=== PATIENT | female | born 1990 | race African-American/Black ===

== ENCOUNTER 2016-12-20 23:15 | Emergency (ER) | payer OTHER ==
[2016-12-21 01:17] LABS: Hematocrit 37 % (35-47); Hemoglobin 12.1 g/dl (12.0-16.0); Mean Corpuscular HGB Conc 33 g/dl (31-36); Mean Corpuscular Hemoglobin 23 pg (27-31); Mean Corpuscular Volume 70 fL (80-97); Mean Platelet Volume 8 um3 (7.4-10.4); Red Blood Count 5.28 10^6/ul (4.0-5.4); Red Cell Distribution Width 15 % (10.5-15); White Blood Count 9.1 10^3/ul (3.5-10.8)
[2016-12-21 01:21] LABS: Add Diff/Slide Review? Slide Review Added; Comments Flag Yes
[2016-12-21 01:31] LABS: ALT 8 U/L (7-52); AST 14 U/L (13-39); Alkaline Phosphatase 27 U/L (34-104); Anion Gap 4 mmol/L (2-11); BUN/Creatinine Ratio 10.2 (8-20); Blood Urea Nitrogen 9 mg/dL (6-24); C Reactive Protein < 1.00 mg/L (< 5.00); CO2 Carbon Dioxide 26 mmol/L (22-32); Calcium 9.2 mg/dL (8.6-10.3); Chloride 101 mmol/L (101-111); EGFR African American 101.5 (>60); EGFR Non-African American 78.9 (>60); Globulin 3.4 g/dL (2-4); Glucose 103 mg/dL (70-100); Lipase 10 U/L (11.0-82.0); Potassium 3.3 mmol/L (3.5-5.0); Sodium 131 mmol/L (133-145); Total Protein 7.4 g/dL (6.4-8.9)
[2016-12-21] MEDS ORDERED: Prochlorperazine TAB* 10 MG PO ONE (03:31)
[2016-12-21] MEDS ORDERED: Acetaminophen TAB* 325 MG PO ONE (03:31)
[2016-12-21 03:57] LABS: Urine Bacteria 1+ (Absent); Urine Bilirubin Negative (Negative); Urine Glucose Negative (Negative); Urine Nitrite Negative (Negative)
[2016-12-21 04:44] VITALS: BP 128/86
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
== END 2016-12-21 04:41 | disposition home or self-care (01) ==
LOC: ED 23:15
DX: O26.899 Other specified pregnancy related conditions, unspecified trimester (principal); R11.2 Nausea with vomiting, unspecified; R10.10 Upper abdominal pain, unspecified; Z3A.00 Weeks of gestation of pregnancy not specified
CPT/HCPCS: 36415; 80053; 81003; 81015; 83605; 83690; 84702; 85025; 86140; 87086; 99284; A9270-GY; Q0164

== ENCOUNTER 2018-12-29 23:57 | Emergency (ER) | payer BC, OTHER ==
[2018-12-30 06:27] LABS: Hematocrit 37 % (35-47); Hemoglobin 11.6 g/dL (12.0-16.0); Mean Corpuscular HGB Conc 32 g/dL (31-36); Mean Corpuscular Hemoglobin 22 pg (27-31); Mean Platelet Volume 8.3 fL (7.4-10.4); Platelet Count 299 10^3/uL (150-450); Red Blood Count 5.18 10^6 /uL (3.70-4.87); Red Cell Distribution Width 15 % (10-15); White Blood Count 5.7 10^3/uL (3.5-10.8)
[2018-12-30 06:40] LABS: ALT 18 U/L (7-52); AST 29 U/L (13-39); Albumin/Globulin Ratio 1.3 (1-3); Alkaline Phosphatase 35 U/L (34-104); Anion Gap 6 mmol/L (2-11); BUN/Creatinine Ratio 13.4 (8-20); Blood Urea Nitrogen 13 mg/dL (6-24); CO2 Carbon Dioxide 25 mmol/L (22-32); Calcium 9.3 mg/dL (8.6-10.3); Chloride 105 mmol/L (101-111); EGFR Non-African American 69.4 (>60); Globulin 3.2 g/dL (2-4); Glucose 86 mg/dL (70-100); Potassium 3.9 mmol/L (3.5-5.0); Sodium 136 mmol/L (135-145); Total Protein 7.2 g/dL (6.4-8.9)
[2018-12-30 06:47] LABS: HCG Pregnancy < 0.60 mIU/mL
[2018-12-30 06:48] LABS: ABS Basophils 0.1 10^3/ul (0-0.2); ABS Eosinophils 0.1 10^3/ul (0-0.6); ABS Lymphocytes 2.2 10^3/ul (1.0-4.8); ABS Monocytes 0.6 10^3/ul (0-0.8); ABS Neutrophils 2.8 10^3/ul (1.5-7.7); Eosinophil % 1.1 %; Lymphocyte % 38.8 %; Mean Corpuscular Volume 71 fL (80-97); Nucleated Red Blood Cells % 0.2
[2018-12-30 07:19] LABS: Hepatitis B Surface Antigen Nonreactive (Nonreactive)
[2018-12-30 07:37] LABS: Hepatitis C Antibody Negative (Negative)
[2018-12-30] MEDS ORDERED: Ondansetron ODT TAB* 4 MG PO ONE (08:14)
[2018-12-30] MEDS ORDERED: Ibuprofen TAB* 800 MG PO ONE (08:14)
[2018-12-30] MEDS ORDERED: metroNIDAZOLE TAB* 250 MG PO ONE (08:15)
[2018-12-30] MEDS ORDERED: Azithromycin TAB* 250 MG PO ONE (08:15)
[2018-12-30] MEDS ORDERED: cefTRIAXone VIAL(*) 250 MG VIAL IM ONE (08:15)
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
[2018-12-30] MEDS ORDERED: Lidocaine 1% MPF ** 5 ML VIAL ONE (08:20)
[2018-12-30 08:40] LABS: Urine Appearance Clear; Urine Bilirubin Negative (Negative); Urine Blood Negative (Negative); Urine Color Yellow; Urine Glucose Negative (Negative); Urine Ketones Negative (Negative); Urine Nitrite Negative (Negative); Urine Protein Negative (Negative); Urine Specific Gravity 1.028 (1.010-1.030); Urine Urobilinogen Negative (Negative)
[2018-12-30 08:42] LABS: Urine Benzodiazepine Screen None Detected (None Detect); Urine Opiates Screen None Detected (None Detect)
[2018-12-30 08:44] VITALS: BP 00/0
[2019-01-01 13:32] LABS: Chlamydia trachomatis NAA Negative (Negative); Neisseria gonorrhoeae (GC) NAA Negative (Negative)
== END 2018-12-30 08:44 | disposition home or self-care (01) ==
LOC: ED 23:57
DX: T76.21XA Adult sexual abuse, suspected, initial encounter (principal)
CPT/HCPCS: 36415; 80053; 80307; 81003; 83605; 84702; 85025; 86803; 87340; 87491; 87591; 96372; 99284; A9270-GY; J0696

== ENCOUNTER 2019-05-16 07:45 | Emergency (ER) | payer BC ==
--- NOTE | 2019-05-16 08:11 | ED ---
HPI Chest Pain - HPI Summary HPI Summary: 28 year old F presenting to [facility] alone complains of CP in the medial chest that radiates to her right back since she woke up this morning 05/16/2019. Patient reports a pre-existing cough with no blood. Patient denies pain or swelling in the legs and SOB. She has PMHx of endometriosis which she has received surgery for and is currently on control. 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 She has a FHx of blood clots for which there is a disorder running in her family. No FHx of [place] however. No recent travel. The patient rates the pain 6/10 in severity. Symptoms aggravated by movement. Symptoms alleviated by nothing. Medications reviewed. Allergies noted. Home Medications Medication Instructions Recorded Confirmed Type Control 1 tab PO DAILY 05/16/19 05/16/19 History - History of Current Complaint Chief Complaint: EDBackInjuryPain Time Seen by Provider: 05/16/19 08:03 Hx Obtained From: Patient Hx Last Menstrual Period: 01/11/15 Onset/Duration: Started Hours Ago, Still Present Timing: Lasting Hours Current Severity: Moderate Pain Intensity: 6 Pain Scale Used: 0-10 Numeric Chest Pain Location: Mid Sternal Chest Pain Radiates: Yes Chest Pain Radiates To:: Back - right Aggravating Factor(s): Movement Alleviating Factor(s): Nothing Associated Signs and Symptoms: Positive: Chest Pain - mid sternal and radiates to right back, Cough - pre-existing with no blood. Negative: Shortness of Breath, Calf Pain/Swelling - Allergy/Home Medications Allergies/Adverse Reactions: Allergies Allergy/AdvReac Type Severity Reaction Status Date / Time artifical estrogen Allergy See Comment Uncoded 05/16/19 08:07 Home Medications: Home Medications Norgestimate-Eth Estradiol(NF) [Ortho Tri-Cyclen (NF)] 1 tab PO DAILY 05/16/19 [ History Confirmed 05/16/19] PMH/Surg Hx/FS Hx/Imm Hx Endocrine/Hematology History: Denies: Hx Anticoagulant Therapy Cardiovascular History: Denies: Hx Pacemaker/ICD GI History: Reports: Hx Gastroesophageal Reflux Disease, Other GI Disorders - endometriosis Musculoskeletal History: Denies: Hx Rheumatoid Arthritis, Hx Osteoporosis Sensory History: Denies: Hx Hearing Aid Psychiatric History: Denies: Hx Panic Disorder - Immunization History Date of Tetanus Vaccine: UNK Date of Influenza Vaccine: UNK Infectious Disease History: No Infectious Disease History: Denies: Traveled Outside the [place] in Last 30 Days - Family History Known Family History: Positive: Other - multiple PE (father), breast CA ( grandmother), blood clots Negative: Hypertension, Diabetes - Social History Alcohol Use: Occasionally Substance Use Type: Reports: None Hx Tobacco Use: No Smoking Status (MU): Never Smoked Tobacco Review of Systems Positive: Chest Pain - mid sternal and radiates to right back Positive: Cough - pre-existing with no blood. Negative: Shortness Of Breath Negative: Edema - no pain or swelling in legs All Other Systems Reviewed And Are Negative: Yes Physical Exam - Summary Physical Exam Summary: Constitutional: Well-developed, Well-nourished, Alert. (-) Distressed. Skin: Warm, Dry HENT: Normocephalic; Atraumatic Eyes: Conjunctiva normal Neck: Musculoskeletal ROM normal neck. (-) JVD, (-) Stridor, (-) Tracheal deviation Cardio: Rhythm regular, rate normal, Heart sounds normal; Intact distal pulses; Radial pulses are 2+ and symmetric. (-) Murmur Pulmonary/Chest wall: Effort normal. (-) Respiratory distress, (-) Wheezes, (-) Rales Abd: Soft, (-) tenderness, (-) Distension, (-) Guarding, (-) Rebound Musculoskeletal: (-) Edema. Patient is asymptomatic when laying down but has difficulty sitting up due to pain in the right scapula. Lymph: (-) Cervical adenopathy Neuro: Alert, Oriented x3 Psych: Mood and affect Normal Triage Information Reviewed: Yes Vital Signs On Initial Exam: Initial Vitals Temp Pulse Resp BP Pulse Ox 99.1 F 81 18 116/80 99 05/16/19 07:47 05/16/19 07:47 05/16/19 07:47 05/16/19 07:47 05/16/19 07:47 Vital Signs Reviewed: Yes Procedures - Sedation Patient Received Moderate/Deep Sedation with Procedure: No Diagnostics - Vital Signs Vital Signs Temp Pulse Resp BP Pulse Ox 05/16/19 07:47 99.1 F 81 18 116/80 99 - Laboratory Result Diagrams: 05/16/19 08:21 05/16/19 08:21 Lab Statement: Any lab studies that have been ordered have been reviewed, and results considered in the medical decision making process. - CT Chest/Thorax CTA CT Interpretation Completed By: Radiologist Summary of CT Findings: IMPRESSION: NO PULMONARY ARTERIAL FILLING DEFECT TO SUGGEST PULMONARY EMBOLISM. has reviewed this report. - EKG 0756 Cardiac Rate: NL EKG Rhythm: Sinus Rhythm Summary of EKG Findings: An EKG at 0756 reveals sinus rhythm at a rate of 72 with no STEMI. has reviewed and interpreted this EKG. Chest Pain Course/Dx - Course Course Of Treatment: Patient is here with pain in her back that relates to her right chest. Patient is concerned that she is a family history of a clotting disorder and multiple family members who have had blood clots. Patient is overall low risk outside of that so a d-dimer was performed which was positive. Patient subsequently had a CTA which showed no evidence of PE. Patient's EKG and troponin were unremarkable as well. 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 - Diagnoses Provider Diagnoses: Back pain, Chest pain Discharge ED - Sign-Out/Discharge Documenting (check all that apply): Patient Departure - discharge - Discharge Plan Condition: Stable Disposition: HOME Patient Education Materials: Back Pain (ED) Referrals: Abbi Menjivar MD [Primary Care Provider] - Additional Instructions: Please follow up with her primary care doctor in 1-3 days for reassessment Please return if you have worsening shortness of breath, chest pain, any other concerning symptoms Please talk to your primary care doctor about being tested for your family genetic disease - Billing Disposition and Condition Condition: STABLE Disposition: Home - Attestation Statements Document Initiated by Jose: Yes Documenting Scribe: Elijah Solomon Provider For Whom Jose is Documenting (Include Credential): Dr.Keith Papo MD Scribe Attestation: Elijah Brown scribed for Dr.Keith Papo MD on 05/16/19 at 1252. Scribe Documentation Reviewed: Yes Provider Attestation: The documentation as recorded by the Elijah garcia accurately reflects the service I personally performed and the decisions made by me, Dr.Keith Papo MD Status of Scribe Document: Viewed
[2019-05-16] MEDS ORDERED: Acetaminophen TAB* 325 MG PO ONE (08:18)
[2019-05-16] MEDS ORDERED: Ibuprofen TAB* 600 MG PO ONE (08:18)
[2019-05-16 08:41] LABS: ABS Eosinophils 0.1 10^3/ul (0-0.6); ABS Lymphocytes 1.8 10^3/ul (1.0-4.8); ABS Monocytes 0.6 10^3/ul (0-0.8); ABS Neutrophils 2.2 10^3/ul (1.5-7.7); Eosinophil % 1.5 %; Hematocrit 35 % (35-47); Hemoglobin 11.6 g/dL (12.0-16.0); Lymphocyte % 38.2 %; Mean Corpuscular HGB Conc 33 g/dL (31-36); Mean Corpuscular Hemoglobin 23 pg (27-31); Mean Corpuscular Volume 70 fL (80-97); Mean Platelet Volume 8.4 fL (7.4-10.4); Nucleated Red Blood Cells % 0.1; Platelet Count 229 10^3/uL (150-450); Red Blood Count 5.09 10^6 /uL (3.70-4.87); Red Cell Distribution Width 15 % (10-15); White Blood Count 4.7 10^3/uL (3.5-10.8)
[2019-05-16 08:55] LABS: ALT 9 U/L (7-52); AST 16 U/L (13-39); Albumin 3.8 g/dL (3.2-5.2); Albumin/Globulin Ratio 1.4 (1-3); Alkaline Phosphatase 29 U/L (34-104); Anion Gap 5 mmol/L (2-11); BUN/Creatinine Ratio 12.6 (8-20); Blood Urea Nitrogen 12 mg/dL (6-24); CO2 Carbon Dioxide 25 mmol/L (22-32); Calcium 8.8 mg/dL (8.6-10.3); Chloride 105 mmol/L (101-111); EGFR Non-African American 71.1 (>60); Globulin 2.8 g/dL (2-4); Glucose 88 mg/dL (70-100); Sodium 135 mmol/L (135-145); Total Protein 6.6 g/dL (6.4-8.9)
[2019-05-16 09:02] LABS: HCG Pregnancy < 0.60 mIU/mL
[2019-05-16] MEDS ORDERED: Iohexol 350* (CONTRAST) 500 ML MDV IV ONE (09:18)
[2019-05-16 10:53] VITALS: BP 117/72
== END 2019-05-16 11:04 | disposition home or self-care (01) ==
LOC: ED 07:45
DX: M54.6 Pain in thoracic spine (principal); R07.89 Other chest pain; Z79.3 Long term (current) use of hormonal contraceptives
CPT/HCPCS: 36415; 71275; 80053; 84484; 84702; 85025; 85379; 93005; 99282; A9270-GY; Q9967